=== PATIENT | female | born 1980 | race African-American/Black ===

== ENCOUNTER 2020-05-19 09:27 | Emergency (ER) | payer OTHER ==
--- NOTE | 2020-05-19 09:32 | ED Physician Documentation ---
PD HPI ABD PAIN - Stated complaint Stated Complaint: BACK PAIN, BLOATING - History obtained from History obtained from: Patient - History of Present Illness Timing - onset: How many weeks ago (1) Timing - duration: Weeks (1) Timing - details: Abrupt onset, Still present (more consistent since during the night.), Intermittant Quality: Aching, Pain Location: RUQ Radiation: Right flank Improved by: No: Laying still Worsened by: No: Moving Associated symptoms: Nausea. No: Fever, Vomiting, Diarrhea, Constipation Similar symptoms before: No diagnosis (has had renal U/S in the past with UTI and was noted to have stone in gallbladder but not further detailed since was renal U/S.) Recently seen: Not recently seen Review of Systems Constitutional: denies: Fever, Chills Nose: denies: Rhinorrhea / runny nose, Congestion Throat: denies: Sore throat Respiratory: denies: Cough GI: reports: Abdominal Pain, Nausea. denies: Vomiting, Constipation, Diarrhea, Bloody / black stool : denies: Dysuria, Frequency Skin: denies: Rash, Lesions PD PAST MEDICAL HISTORY - Past Medical History Past Medical History: No Cardiovascular: None Respiratory: None Neuro: None Endocrine/Autoimmune: None - Present Medications Home Medications: Ambulatory Orders Medication Instructions Recorded Confirmed HYDROcod/ACETAM 5/325 [[place] 5/325] 1 ea PO Q6H PRN #18 tablet 05/19/20 Naproxen [EC-Naproxen] 500 mg PO BID #20 tablet. 05/19/20 Ondansetron Odt [Zofran] 4 mg TL Q6H PRN #10 tablet 05/19/20 - Allergies Allergies/Adverse Reactions: Allergies Allergy/AdvReac Type Severity Reaction Status Date / Time No Known Drug Allergies Allergy Verified 05/19/20 09:35 PD ED PE NORMAL - Vitals Vital signs reviewed: Yes - General General: Alert and oriented X 3, Well developed/nourished - HEENT HEENT: Pharynx benign - Neck Neck: Supple, no meningeal sign, No adenopathy - Cardiac Cardiac: RRR, No murmur - Respiratory Respiratory: Clear bilaterally - Abdomen Abdomen: Normal bowel sounds, Soft, Non distended, No organomegaly, Other (tender RUQ without guarding, percussion nor rebound tenderness. ) - Back Back: No CVA TTP - Derm Derm: Normal color, Warm and dry - Extremities Extremities: No tenderness to palpate, Normal ROM s pain, No edema, No calf tenderness / cord - Neuro Neuro: Alert and oriented X 3, No motor deficit, No sensory deficit, Normal speech Results - Vitals Vitals: Vital Signs - 24 hr 05/19/20 05/19/20 09:31 12:14 Temperature 37.0 C 37.2 C Heart Rate 80 73 Respiratory 16 16 Rate Blood Pressure 125/88 H 132/99 H O2 Saturation 100 100 Oxygen O2 Source Room air - Labs Labs: Laboratory Tests 05/19/20 05/19/20 05/19/20 10:07 10:07 10:44 WBC 8.3 RBC 4.59 Hgb 13.0 Hct 40.9 MCV 89.1 MCH 28.3 MCHC 31.8 L RDW 13.6 Plt Count 369 MPV 10.0 Neut # (Auto) 5.1 Lymph # (Auto) 2.7 [place] # (Auto) 0.3 Eos # (Auto) 0.0 Baso # (Auto) 0.0 Absolute Nucleated RBC 0.00 Nucleated RBC % 0.0 Sodium 136 Potassium 4.0 Chloride 103 Carbon Dioxide 24 Anion Gap 9.0 BUN 6 Creatinine 1.0 Estimated GFR (MDRD) 74 L Glucose 87 Calcium 9.3 Total Bilirubin 0.3 AST 15 ALT 19 Alkaline Phosphatase 42 Total Protein 8.0 Albumin 3.8 Globulin 4.2 Albumin/Globulin Ratio 0.9 L Lipase 25 Urine Color YELLOW Urine Clarity CLEAR Urine pH 6.0 Ur Specific [place] 1.025 Urine Protein NEGATIVE Urine Glucose (UA) NEGATIVE Urine Ketones NEGATIVE Urine Occult Blood TRACE-INTA Urine Nitrite NEGATIVE Urine Bilirubin NEGATIVE Urine Urobilinogen 0.2 (NORMAL) Ur Leukocyte Esterase NEGATIVE Ur Microscopic Review NOT INDICATED Urine Culture Comments NOT INDICATED - Rads (name of study) RUQ U/S Radiology: Prelim report reviewed (gallstone in neck with some distension of GB but no wall thickening nor surrounding fluid. ), See rad report PD MEDICAL DECISION MAKING - ED course Complexity details: reviewed results (I think her pain is GB distension and colic due to stone in neck. No acute cholecuystitis, so refer to general surgery. ), considered differential, d/w patient Departure - Departure Disposition: 01 Home, Self Care Clinical Impression: Right upper quadrant abdominal pain Gallstone Qualifiers: Cholecystitis presence: without cholecystitis Biliary obstruction: without biliary obstruction Qualified Code(s): K80.20 - Calculus of gallbladder without cholecystitis without obstruction Condition: Stable Record reviewed to determine appropriate education?: Yes Instructions: ED Gallstone W Biliary Colic Follow-Up: LU VEGA ARNP [Primary Care Provider] - Nikita Dutton MD [Provider Admit Priv/Credential] - Hema Cedeño MD [Provider Admit Priv/Credential] - Prescriptions: Naproxen [EC-Naproxen] 500 mg PO BID #20 tablet. HYDROcod/ACETAM 5/325 [[place] 5/325] 1 ea PO Q6H PRN #18 tablet PRN Reason: Pain Ondansetron Odt [Zofran] 4 mg TL Q6H PRN #10 tablet PRN Reason: Nausea / Vomiting Comments: Your ultrasound shows a gallstone near the neck/outlet of the gallbladder with a little distention of the gallbladder. It therefore looks like the stone is partly obstructing the outflow of the bile causing pressure in the gallbladder. There is no signs of acute inflammation or infection. This is likely however causing your pain. Stay well-hydrated. Avoid fatty foods in the short-term. Use some anti- inflammatory such as naproxen twice daily to reduce pain in potential inflammation. Add Tylenol or hydrocodone as needed for pains. Call one of the surgery offices on Thursday for a follow-up appointment at their soonest available to discuss potential gallbladder surgery based on these findings. Return if significant worsening pain, vomiting, fever, other concerns. Discharge Date/Time: 05/19/20 12:29
[2020-05-19] MEDS ORDERED: ACETAMINOPHEN 325 MG TABLET PO STA (09:51)
[2020-05-19 10:16] LABS: BASOPHILS % (AUTO) 0.5 %; EOSINOPHILS % (AUTO) 0.5 %; LYMPHOCYTES # (AUTO) 2.7 10^3/uL (1.5-3.5); LYMPHOCYTES % (AUTO) 32.9 %; MEAN CORPUSCULAR HEMOGLOBIN 28.3 pg (27.0-31.0); MEAN CORPUSCULAR HGB CONC 31.8 g/dL (32.0-36.0); MEAN CORPUSCULAR VOLUME 89.1 fL (81.0-99.0); MONOCYTES # (AUTO) 0.3 10^3/uL (0.0-1.0); MONOCYTES % (AUTO) 3.7 %; NEUTROPHILS # (AUTO) 5.1 10^3/uL (1.5-6.6); PLT - PLATELET COUNT 369 10^3/uL (130-450); RED BLOOD COUNT 4.59 10^6/uL (4.20-5.40); RED CELL DISTRIBUTION WIDTH 13.6 % (12.0-15.0); WHITE BLOOD COUNT 8.3 x10^3/uL (4.8-10.8)
[2020-05-19 10:26] LABS: ALBUMIN 3.8 g/dL (3.2-5.5); ALBUMIN/GLOBULIN RATIO 0.9 (1.0-2.2); BILIRUBIN,TOTAL 0.3 mg/dL (0.2-1.0); CALCIUM 9.3 mg/dL (8.5-10.3)
[2020-05-19 10:45] LABS: BILIRUBIN,URINE NEGATIVE (NEGATIVE); GLUCOSE, URINE (UA) NEGATIVE (NEGATIVE); KETONES,URINE (UA) NEGATIVE (NEGATIVE); LEUKOCYTE ESTERASE, URINE NEGATIVE (NEGATIVE); NITRITE,URINE NEGATIVE (NEGATIVE); OCCULT BLOOD,URINE TRACE-INTA (NEGATIVE); PROTEIN,URINE NEGATIVE (NEGATIVE); UROBILINOGEN,URINE 0.2 (NORMAL) E.U./dL (NORMAL)
[2020-05-19 10:47] LABS: CLARITY,URINE CLEAR (CLEAR)
--- NOTE | 2020-05-19 11:59 | Ultrasound Report ---
PROCEDURE: Abdomen Limited INDICATIONS: RUQ abd/right flank pain TECHNIQUE: Real-time focused scanning was performed of the abdomen, with image documentation. COMPARISON: None available at the time of this dictation FINDINGS: The liver demonstrates normal size and echogenicity. No liver lesions are detected. A gallstone is seen within the gallbladder neck that measures 3.1 cm. Echogenic sludge is seen. The g allbladder appears distended. No The gallbladder wall does not appear thickened. There is no specifi c pericholecystic fluid. The sonographic Perez's sign is negative. No biliary ductal dilatation is seen. The common bile duct measures 5 mm. The visualized pancreas is within normal limits. The visualized right kidney is unremarkable. No right kidney hydronephrosis can be seen. IMPRESSION: 3.1 cm gallstone is seen with echogenic sludge also seen within the gallbladder. The gallbladder is d istended. No additional sonographic signs of cholecystitis are seen. Please correlate with patient pr esentation, clinical examination findings, and laboratory values, as appropriate. Reviewed by: Seb Tidwell MD on 05/19/2020 10:58 AM [facility] Approved by: Seb Tidwell MD on 05/19/2020 10:58 AM [facility] Station ID: [id number]
[2020-05-19 12:14] VITALS: BP 132/99
== END 2020-05-19 12:29 | disposition home or self-care (01) ==
LOC: ED 09:27
DX: K80.20 Calculus of gallbladder without cholecystitis without obstruction (principal)
CPT/HCPCS: 36415; 76705; 80053; 81003; 83690; 85025; 99284; A9270; 81001; 87086